=== PATIENT | female | born 1970 | race Caucasian/White ===

== ENCOUNTER 2021-10-09 12:00 | Emergency (ER) | payer OTHER ==
[~2021-10-09 12:00] MED LIST: ADIPEX-P37.5 M1 PO; CLARITIN10 MG PO; XYZAL5 MG PO; ZOLOFT100 MG PO
[2021-10-09 14:25] LABS: HEMOGLOBIN 14.3 gm/dl (12.3-15.3); RED BLOOD COUNT 4.95 M/UL (4.00-5.10); WHITE BLOOD COUNT 6.3 K/UL (4.5-11.0)
[2021-10-09 14:45] LABS: BUN/CREATININE RATIO 14 (0-10)
[2021-10-09] MEDS ORDERED: NAPROSYN500 MG PO (17:21)
[2021-10-09] MEDS ORDERED: CYCLOBENZAPRINE10 MG PO (17:21)
== END 2021-10-09 17:25 | disposition home or self-care (01) ==
LOC: ER1 12:00
PROVIDERS: Physician Assistant
DX: S16.1XXA Strain of muscle, fascia and tendon at neck level, initial encounter (principal); S39.012A Strain of muscle, fascia and tendon of lower back, initial encounter; K21.9 Gastro-esophageal reflux disease without esophagitis; V49.9XXA Car occupant (driver) (passenger) injured in unspecified traffic accident, initial encounter
CPT/HCPCS: 72125; 80053; 85025; 99284; Q9967

== ENCOUNTER → 2021-11-15 | Outpatient (CLI) | payer BC ==
[~2021-11-15] MED LIST changes: +CYCLOBENZAPRINE10 MG PO; +NAPROSYN500 MG PO
== END ==
LOC: KOH-I 16:05
DX: J32.9 Chronic sinusitis, unspecified (principal)
CPT/HCPCS: 70486